=== PATIENT | female | born 1970 | race Caucasian/White ===

== ENCOUNTER 2016-09-15 20:39 | Emergency (ER) | payer SELFPAY ==
[~2016-09-15] VITALS: Ht 167.6 cm; Wt 81.6 kg
[2016-09-15 21:09] VITALS: BP 120/79
[2016-09-15 21:44] LABS: OBC FLU VALID
[2016-09-15] MEDS ORDERED: AMOX1TAB61 PO (21:53)
--- NOTE | 2016-09-15 21:53 | PHYS DOC ---
Past Medical History Past Medical History: Bronchitis Past Surgical History: Appendectomy, , Tonsillectomy Alcohol Use: None Drug Use: None Adult General Chief Complaint Chief Complaint: FLU SYMPTOM HPI HPI Patient is a 45 year old female resents to the emergency department states that she has had a basal skull headache as well as maxillary sinus pressure and discomfort. She states this is been going on for the last 2 weeks. She states that she's had increased cough and congestion and feels rather fatigued. She states that she's had some nausea feeling although has not vomited. She states that she has been having fevers on and off denies any chills. She denies any diarrhea or any constipation. Review of Systems Review of Systems Constitutional: fever Eyes: Denies change in visual acuity, redness, or eye pain [] HENT: nasal congestion denies sore throat [] Respiratory: cough denies shortness of breath [] Cardiovascular: No additional information not addressed in HPI [] GI: Denies abdominal pain, nausea, vomiting, bloody stools or diarrhea [] : Denies dysuria or hematuria [] Musculoskeletal: Denies back pain or joint pain [] Integument: Denies rash or skin lesions [] Neurologic: Denies headache, focal weakness or sensory changes [] Physical Exam Physical Exam Constitutional: Well developed, well nourished, no acute distress, non-toxic appearance. [] HENT: Normocephalic, atraumatic, bilateral external ears normal, oropharynx moist, no oral exudates, nose normal. Lateral tympanic membranes appear to be normal. Throat with no erythematous drainage or discharge. Patient with no frontal sinus tenderness she does however have maxillary sinus tenderness. Eyes: PERRLA, EOMI, conjunctiva normal, no discharge. [] Neck: Normal range of motion, no tenderness, supple, no stridor. [] Cardiovascular:Heart rate regular rhythm, no murmur [] Lungs & Thorax: Bilateral breath sounds clear to auscultation [] Skin: Warm, dry, no erythema, no rash. [] Back: No tenderness, no CVA tenderness. [] Extremities: No tenderness, no cyanosis, no clubbing, ROM intact, no edema. [] Neurologic: Alert and oriented X 3, normal motor function, normal sensory function, no focal deficits noted. [] Psychologic: Affect normal, judgement normal, mood normal. [] Current Patient Data Vital Signs Vital Signs Date Time Temp Pulse Resp B/P Pulse Ox O2 Delivery O2 Flow Rate FiO2 09/15/16 21:09 98.7 86 20 99 Room Air 98.7 Lab Values Laboratory Tests Test 09/15/16 21:05 POC Urine HCG, Qualitative Hcg negative (Negative) EKG EKG [] Radiology/Procedures Radiology/Procedures [] Course & Med Decision Making Course & Med Decision Making Pertinent Labs and Imaging studies reviewed. (See chart for details) Influenza was negative, rapid strep was negative. Patient will be discharged home with sinusitis instructions. She'll be provided with Augmentin 1 tablet twice a day for the next 10 days. Patient was encouraged take Tylenol or ibuprofen for fever chills or generalized body aches and discomfort. Recommended cough medication [id number] such as Mucinex DM as prescribed by caddy packer. Patient will be discharged home in stable condition signs and symptoms to return back to emergency department as been provided. [] Dragon Disclaimer Dragon Disclaimer This electronic medical record was generated, in whole or in part, using a voice recognition dictation system. Departure Departure Impression: Primary Impression: Sinusitis Disposition: HOME, SELF-CARE Condition: STABLE Referrals: NO PCP (PCP) Patient Instructions: Sinusitis Additional Instructions: Activity as tolerated. Tylenol or ibuprofen for fever chills or generalized body aches and discomfort. Mucinex DM as prescribed [id number] by caddy packer. Drink plenty of fluids. Medication as prescribed. Follow-up to primary care physician next 5-7 days. Return back to emergency prior signs symptoms of become worse. Scripts Amoxicillin/Potassium Clav (Augmentin 875-125 Tablet)1 Each Tablet1 Tab PO BID # 20 TAB Prov:ELEAZAR STOKES NP 09/15/16 ELEAZAR STOKES NP Sep 15, 2016 21:53
== END 2016-09-15 21:58 | disposition home or self-care (01) ==
LOC: ER 20:39
DX: J32.9 Chronic sinusitis, unspecified (principal); R11.0 Nausea; Z90.89 Acquired absence of other organs
CPT/HCPCS: 81025; 87804; 99284